=== PATIENT | male | born 1940 | race Caucasian/White ===

== ENCOUNTER 2024-11-28 13:52 | Emergency (ER) | payer MEDICARE ==
[~2024-11-28] VITALS: Ht 188 cm; Wt 113.4 kg
[2024-11-28] MEDS: TRAMADOL HCL 50 MG TAB PO ONE (15:47)
[2024-11-28 17:19] VITALS: PULSE 74; RESP 18; TEMP 98; O2SAT 98
== END 2024-11-28 17:20 | disposition home or self-care (01) ==
LOC: ER 14:26
DX: M25.552 Pain in left hip (principal); M25.551 Pain in right hip; L89.151 Pressure ulcer of sacral region, stage 1; G89.29 Other chronic pain
CPT/HCPCS: 99283